=== PATIENT | female | born 1970 | race Two or more races ===

== ENCOUNTER 2018-02-23 10:50 | Emergency (ER) | payer MEDICAID, OTHER ==
[~2018-02-23] VITALS: Ht 154.9 cm; Wt 72.6 kg
[2018-02-23] MEDS ORDERED: PROMETHAZINE HCL 25 MG/ML 1ML IV ONE ×2 (12:45→21:15)
[2018-02-23] MEDS ORDERED: SODIUM CHLORIDE 0.9% 1,000 ML IV ONE (13:05)
[2018-02-23 13:30] LABS: Basophils # (auto) 0.1 uL; Basophils % (auto) 0.6 % (0.0-2.0); Eosinophils # (auto) 0.1 uL; Eosinophils % (auto) 1.4 % (0.0-7.0); Hematocrit 42.5 % (36.0-46.0); Hemoglobin 13.9 g/dL (12.2-16.2); Lymphocytes # (auto) 2.1 uL; Lymphocytes % (auto) 19.3 % (10.0-50.0); Mean Corpuscular Hemoglobin 28.5 pg (28.0-32.0); Mean Corpuscular Hgb Conc. 32.7 g/dL (32.0-36.0); Monocytes # (auto) 0.7 uL; Monocytes % (auto) 6.3 % (0.0-12.0); Neutrophils # (auto) 7.7 uL; Neutrophils % (auto) 72.4 % (37.0-80.0); Nucleated Red Blood Cells % 0.1 %; Platelet Count (auto) 238 10^3/uL (140-450); Red Blood Cells 4.89 10^6/uL (4.0-5.20); Red Cell Distribution Width 14.2 % (11.8-14.3); White Blood Cell 10.7 10^3/uL (4.4-10.8)
[2018-02-23 13:43] LABS: INR 1.09 (0.9-1.15); Partial Thromboplastin Time 33.1 sec (23.78-33.04); Prothrombin Time 11.6 sec (9.27-12.13)
[2018-02-23 13:54] LABS: Albumin 4.1 g/dL (3.4-5.0); Magnesium 2.3 mg/dL (1.6-2.6); Potassium 3.7 mmol/L (3.5-5.1)
[2018-02-23 14:00] LABS: BUN/Creatinine Ratio 34.4; Bilirubin, Total 0.4 mg/dL (0.2-1.0); Total Protein 7.9 g/dL (6.4-8.2)
[2018-02-23] MEDS ORDERED: MORPHINE SULFATE 10 MG/ML INJ 1ML SDV IV ONE ×2 (14:15→21:15)
[2018-02-23 16:44] LABS: Urine Bacteria MANY /hpf (None Seen); Urine Blood Negative /uL (Negative); Urine Mucus FEW (None Seen); Urine Specific Gravity 1.011 (1.001-1.035); Urine WBC 3 /hpf (0 - 5)
[2018-02-23 16:52] LABS: Alcohol, Urine < 3.0 mg/dL (0-5); Amphetamine Screen, Urine NEGATIVE (NEGATIVE); Barbiturate Scree,Urine NEGATIVE (NEGATIVE); Benzodiazephine Screen, Urine NEGATIVE (NEGATIVE); Cannabinoid Screen, Urine NEGATIVE (NEGATIVE); Cocaine Screen, Urine NEGATIVE (NEGATIVE); Opiate Scree,Urine POSITIVE (NEGATIVE); Phencyclidine Screen, Urine NEGATIVE (NEGATIVE)
[2018-02-23] MEDS ORDERED: LIDOCAINE 1% HCL (LOCAL ANESTH.) INJ 20ML MDV ONE (17:24)
[2018-02-23] MEDS ORDERED: LIDOCAINE W/ EPINEPHRINE 1% 20ML VIAL SC ONE (17:30)
[2018-02-23 23:23] VITALS: BP 132/86
== END 2018-02-23 23:30 | disposition short-term general hospital (02) ==
LOC: ER 10:56
DX: S72.91XD Unspecified fracture of right femur, subsequent encounter for closed fracture with routine healing (principal); G80.9 Cerebral palsy, unspecified; E11.9 Type 2 diabetes mellitus without complications; E78.5 Hyperlipidemia, unspecified; W50.0XXD Accidental hit or strike by another person, subsequent encounter
CPT/HCPCS: 36415; 51702; 70450; 71045; 80053; 80307; 80320; 81001; 83735; 84443; 84702; 85025; 85610; 85730; 96361; 96372; 96374; 96375; 96376; 99285; J2001; J2270; J2550; J7030